=== PATIENT | male | born 1965 | race Caucasian/White ===

== ENCOUNTER → 2017-12-19 16:18 | Outpatient (CLI) | payer OTHER, SELFPAY ==
[2017-12-19 16:58] LABS: Hematocrit 46.4 % (40-54); Hemoglobin 15.7 g/dl (13.0-16.5); Mean Corp Hgb Conc 33.8 g/gl (32-36); Mean Corpuscular Hgb 30.5 pg (27.0-32.0); Mean Corpuscular Volume 90.1 fL (80-94); Mean Platelet Vol. 10.4 fl (6.2-12.0); Platelet Count 173 K/mm3 (150-450); RBC Distribution Width CV 13.7 % (11.6-14.6); Red Blood Count 5.15 M/mm3 (4.6-6.2); White Blood Count 5.9 K/mm3 (4.4-11.0)
[2017-12-19 17:05] LABS: Scan Indicated on CBC? Y/N NO
[2017-12-19 17:20] LABS: Anion Gap 6 (5-15); BUN 10 mg/dL (7-18); BUN/Creat Ratio 10.4 RATIO (10-20); Calcium,Total 8.4 mg/dL (8.5-10.1); Chloride 105 mmol/L (98-107); Creatinine, Serum 0.96 mg/dL (0.70-1.30); EST Glomerular Filtration Rate 87 mL/min (>60); Est Glom Filt Rate - Afr Amer 105 mL/min (>60); Glucose 78 mg/dL (74-106); Potassium 3.9 mmol/L (3.5-5.1); Sodium Level 138 mmol/L (136-145)
== END ==
LOC: LAB 16:20
PROVIDERS: Family Provider Family Medicine; PCP Family Medicine; Referring Provider Surgery; Visit Provider Surgery
DX: Z01.818 Encounter for other preprocedural examination (principal)
CPT/HCPCS: 36415; 80048; 85027

== ENCOUNTER → 2017-12-27 17:20 | Outpatient (CLI) | payer OTHER, SELFPAY ==
--- NOTE | 2017-12-27 17:24 | CT_ITS ---
STUDY: CTA OF THE ABDOMINAL AORTA AND BILATERAL LOWER EXTREMITIES REASON FOR EXAM: Male, 52 years old. History of abdominal aortic aneurysm. RADIATION DOSAGE (If Supplied By Facility): CTDIvol = ( 14.16 ) mGy, DLP = ( 1857.71 ) mGycm TECHNIQUE: Axial CT angiography multi-detector data acquisition was obtained from the lower thoracic aorta to the level of the feet following intravenous administration of 100 ml of Isovue 370 contrast. Axial images and MIP images were reconstructed from the axial data set. Post-processing of the angiographic images was performed, with multiplanar reformation and 3D reconstruction. # of Images: 1106 Individualized dose optimization techniques were used for this CT. TECHNICAL QUALITY: Good COMPARISON: None. Descriptors of Narrowing: None (0%) Mild (< 50%) Moderate (50-70%) Severe (70-90%) Subtotal/Total Occlusion (90-100%) Non-Evaluable (technically non-diagnostic FINDINGS: Abdominal aorta: There is an infrarenal abdominal aortic aneurysm measuring about 4.9 cm in AP diameter, 4.9 cm in transverse diameter and extends for a length of approximately 7.8 cm ending at the level of the bifurcation. There are peripheral clots and calcifications. The opacified lumen measures about 2.5 cm in diameter. Celiac and superior mesenteric arteries: No demonstrated narrowing. Inferior mesenteric artery: Not visualized. Right renal artery(arteries): No demonstrated narrowing. Left renal artery(arteries): No demonstrated narrowing. Right common iliac artery: Ectatic without significant stenosis. Right external iliac artery: No demonstrated narrowing. Right internal iliac artery: No demonstrated narrowing. Left common iliac artery: Ectatic without significant stenosis. Left external iliac artery: No demonstrated narrowing. Left internal iliac artery: No demonstrated narrowing. RIGHT LOWER EXTREMITY Right common femoral artery: No demonstrated narrowing. Right profundus femoris: No demonstrated narrowing. Right superficial femoral: No demonstrated narrowing. Right popliteal artery: No demonstrated narrowing. Right tibioperoneal trunk: No demonstrated narrowing. Right anterior tibial artery: No demonstrated narrowing. Right posterior tibial artery: No demonstrated narrowing. Right peroneal artery: No demonstrated narrowing. LEFT LOWER EXTREMITY Left common femoral artery: No demonstrated narrowing. Left profundus femoris: No demonstrated narrowing. Left superficial femoral: No demonstrated narrowing. Left popliteal artery: No demonstrated narrowing. Left tibioperoneal trunk: No demonstrated narrowing. Left anterior tibial artery: No demonstrated narrowing. Left posterior tibial artery: No demonstrated narrowing. Left peroneal artery: No demonstrated narrowing. There is no demonstrated acute intra-abdominal process. There is a small umbilical hernia containing fat. CT/CTA Abd w/Runoff W/WO Contrast IMPRESSION: 1. Infrarenal abdominal aortic aneurysm as described above extending to the level of the bifurcation with peripheral clots and calcifications. 2. Ectatic common iliac arteries bilaterally. 3. Otherwise no significant stenosis is seen in both lower extremities. 4. The inferior mesenteric artery is not visualized. Electronically Signed: Silviano Velez MD at 1:53 EDT Tel , Service support ,
== END ==
PROVIDERS: Family Provider Family Medicine; PCP Family Medicine; Referring Provider Surgery; Visit Provider Surgery
DX: I71.4 Abdominal aortic aneurysm, without rupture (principal)
CPT/HCPCS: 75635; Q9967

== ENCOUNTER → 2017-12-29 11:42 | Outpatient (CLI) | payer OTHER, SELFPAY ==
--- NOTE | 2017-12-29 11:43 | CDU_ITS ---
Reason For Study: Bruit Rt. Velocities/BP Lt. Velocities/BP Prox CCA 103.0/22.9 cm/sec. Prox CCA 100.0/30.5 cm/sec. Mid CCA 90.9/22.3 cm/sec. Mid CCA 95.0/29.9 cm/sec. Dist CCA 87.4/24.6 cm/sec. Dist CCA 89.7/29.3 cm/sec. Prox ICA 69.2/25.2 cm/sec. Prox ICA 60.4/23.5 cm/sec. Mid ICA 65.7/29.3 cm/sec. Mid ICA 63.4/30.4 cm/sec. Dist ICA 53.6/25.3 cm/sec. Dist ICA 58.2/23.1 cm/sec. Rt. ICA/CCA = .76. Lt. ICA/CCA = .67. Prox ECA 91.5/24.0 cm/sec. Prox ECA 82.1/27.6 cm/sec. Rt. Vert. 43.4/17.0 cm/sec. Lt. Vert. 48.8/21.5 cm/sec. Right Extracranial There is intimal thickening but no significant atherosclerotic plaque noted in the right common carotid artery. There is intimal thickening but no significant atherosclerotic plaque noted in the right internal carotid artery. There is no significant atherosclerotic plaque noted in the right external carotid artery. Antegrade flow is noted in the right vertebral artery. Left Extracranial There is intimal thickening but no significant atherosclerotic plaque noted in the left common carotid artery. There is intimal thickening but no significant atherosclerotic plaque noted in the left internal carotid artery. There is no significant atherosclerotic plaque noted in the left external carotid artery. Antegrade flow is noted in the left vertebral artery. Procedure Carotid Duplex [id number]. Exam performed in department. Interpretation Summary No hemodynamically significant plague or stenosis bilateral extracranial internal carotids with <50% stenosis bilaterally. Normal flow bilateral external carotids Patent and antegrade vertebrals bilaterally Ordering Physician: Ernst Hampton Referring Physician: Ernst Hampton Performed By: Homa Louis RVT
--- NOTE | 2017-12-29 16:15 | STRESSREP ---
Stress Test Report Date: 12/29/2017 Procedure: Exercise tolerance test Indications: Preoperative cardiovascular evaluation Consent: Per the patient Procedure: The patient exercised on a Conor protocol for 9 minutes completing Stage III achieving a peak heart rate of 150 bpm (89 % predicted maximal heart rate) with a peak blood pressure 142/72 mmHg and a peak MET capacity of approximately 10 MET's. The baseline ECG demonstrated normal sinus rhythm; poor R wave progression. The peak exercise ECG demonstrated somatic/motion artifact with no obvious ECG changes. There was a rare PVC during exercise. The functional capacity was considered good. The patient had no complaint of chest discomfort during exercise or recovery. The examination was discontinued secondary to dyspnea. Impression: 1. Technically adequate (percent predicted maximal heart rate greater than 85%) exercise tolerance test 2. Peak exercise ECG with somatic/motion artifact with no obvious ECG changes 3. There was a rare PVC during exercise This note was generated with Photowaysation software. It may contain incorrect words, spelling, and punctuation that were not noted in checking the note before signing.
== END ==
LOC: CVS 11:42
PROVIDERS: Family Provider Family Medicine; PCP Family Medicine; Referring Provider Surgery; Visit Provider Surgery
DX: Z01.818 Encounter for other preprocedural examination (principal); F17.200 Nicotine dependence, unspecified, uncomplicated; R09.89 Other specified symptoms and signs involving the circulatory and respiratory systems; I71.4 Abdominal aortic aneurysm, without rupture
CPT/HCPCS: 93017; 93880

== ENCOUNTER 2018-01-16 05:01 | Inpatient (IN) | payer OTHER, SELFPAY ==
[2018-01-10 15:25] VITALS: BP 127/77; PULSE 79; RESP 16; TEMP 36.4; O2SAT 97; BMI 29.4
--- NOTE | 2018-01-10 15:31 | SDCEKG_ITS ---
Test Reason : Blood Pressure : / mmHG Vent. Rate : 075 BPM Atrial Rate : 075 BPM P-R Int : 164 ms QRS Dur : 078 ms QT Int : 380 ms P-R-T Axes : 014 070 040 degrees QTc Int : 424 ms Normal sinus rhythm Normal ECG Confirmed by MIKAELA TOMLIN, SAMUEL ([id number]), commissioning editor FILIPE NGO ([id number]) on 01/15/2018 3:51:43 PM Referred By: Ernst Hampton Confirmed By:SAMUEL AL MD
--- NOTE | 2018-01-10 16:28 | RAD_ITS ---
STUDY: X-RAY CHEST REASON FOR EXAM: Male, 52 years old. Acute chest pain TECHNIQUE: PA and lateral views of the chest. COMPARISON: None. FINDINGS: The lungs are clear and expanded. There is no demonstrated pleural abnormality. Normal size heart. Normal mediastinum and jia. Normal visualized pulmonary arteries. Normal visualized aortic arch and descending thoracic aorta. Normal visualized thoracic spine. Normal visualized ribs, clavicles, and shoulders. There is no demonstrated abnormality of the visualized soft tissue structures of the upper abdomen. RAD/Chest PA and Lateral IMPRESSION: Normal x-ray examination of the chest. Electronically Signed: Live Lynch MD at 19:48 EDT , Service support ,
[2018-01-10 16:35] LABS: Magnesium 2.1 mg/dL (1.6-2.6)
[2018-01-10 16:44] LABS: Albumin, Serum 3.9 g/dL (3.2-5.0); Phosphorus 3.4 mg/dL (2.5-4.9)
[2018-01-16] VITALS (38 sets, daily range): BP systolic 104–152; BP diastolic 56–85; PULSE 53–95; RESP 13–21; TEMP 36.2–37.8; O2SAT 96–100; BMI 29.2
[2018-01-16] MEDS: Lactated Ringers 1,000 ML 100 ML IV (06:01)
--- NOTE | 2018-01-16 06:43 | PCM.OPRPT ---
Problem List (1) Abdominal aortic aneurysm (AAA) 3.0 cm to 5.5 cm in diameter in male Status: Acute Report of Operation Date of Procedure: 01/16/18 Pre-Operative Diagnosis: Infrarenal abdominal aortic aneurysm Post-Operative Diagnosis: Same Surgery/Procedure Performed:: Left radial arterial line placement. Infrarenal abdominal aortic aneurysm stent graft repair with [place] excluder main body 31 x 14.5 x 13 and ipsilateral extension 16 x 10 and contralateral extension 20 x 12. Main body reference number [id number]. Serial #[id number]. Extension on the left reference number [id number]. Serial #[id number]. Extension on the right reference number [id number]. Serial #[id number] Description of Surgical Findings:: Timeout and informed consent was obtained. At the bedside Anup test was performed. This demonstrated adequate ulnar flow. The left wrist was gently extended. Was prepped with Betadine. I used 1% lidocaine as a local anesthetic. A total of 1 cc was used. Local was instilled. I initially tried a 20-gauge aero kit Angiocath. Although I got access I could not get Seldinger wire advancement. After a couple more attempts I was able to get a 20-gauge Angiocath with good advancement. It was secured skin with interrupted 3-0 silk and OpSite dressing. It was connected to pressure tubing with good waveform obtained. The hand was viable no apparent complication and he tolerated it well. The patient was subsequently taken to the special procedure lab for definitive operative repair of his aortic aneurysm. Timeout and informed consent was repeated. The patient was taken to the special procedures lab. Was placed on the table. Ancef 2 g are given intravenously preoperatively. The abdomen groins were sterilely prepped and draped. Ioban draping was used as well. Ultrasound was used to identify the common femoral arteries bilaterally. 1% lidocaine mixed 50-50 with 0.5% Marcaine was used as local anesthetic. Throughout the procedure 20 cc was used. Under ultrasound guidance local was instilled. Then a singlewall needle was inserted under ultrasound guidance. Seldinger wire advancement. 8 Barb[place] sheath dilator was inserted. This was performed and bilaterally. Subsequently the pre-close device was utilized bilaterally. 2 separate preclosed devices were pre-deployed at the 2 to 8 o'clock position and the 10 to 4 o'clock position. Subsequently 8 Barb[place] sheaths were reinserted. A 4 [place] angled glide cath with an angled Glidewire was used to gain access proximal to the aneurysm. Exchanged out for an 035 Amplatz wire. A 18 Barbadian sheath was placed on the left. A 12 [place] sheath was placed on the right. The patient received 11,000 units of heparin prior to those sheath placements. And during the procedure based upon ACT he received another 1000 units. The 31 mm main body device was placed from the left. A pigtail catheter was placed from the right. Hand-injection was performed to identify the orifice of the renal arteries the top portion of the graft was positioned. Hand-injection view demonstrated good positioning. The device was deployed down to the contralateral gate. Using an angled Glidewire and the pigtail catheter I was able to gain access to that limb. The pigtail catheter return nicely within the device. I then exchanged out for an 035 Amplatz wire. I placed the 12 Barb[place] sheath dilator within the graft. A valve on extension on the right with a distal diameter of 20 mm x 12 mm length was selected. It was positioned and retrograde imaging had been performed to assure correct length. The device was deployed. Subsequently the main body device was completely deployed on the left. Sheath were withdrawn where needed. Subsequently the extension was placed on the left again I advanced the left sheath up into the graft then placed a 16 mm diameter by 10 cm long device on the left. Retrograde injection was used to identify the orifice of the hypogastric as had been done on the right. The device was deployed. Subsequently a 27 mm equalizer balloon was utilized to secure an iron out the graft at all locations. A pigtail catheter was reinserted from the right and using 15 cc a second of Isovue for 25 cc an AP aortogram was obtained. This demonstrated very nice positioning of the top of the graft right at the orifice of the right renal artery coming straight across. There was good positioning distally with patent hypogastric bilaterally. There was some evidence of some lumbar fill but there was no type I endoleak. The sheaths were subsequently removed. The Perclose devices were secured. I did have to place an additional third Perclose device over the Amplatz wire in each groin to achieve a hemostasis. Hemostasis was achieved. Feet were viable with palpable pulses. There were no apparent complications he tolerated the procedure well was taken back to the intensive care unit service in satisfactory condition. Total contrast used 70 cc. Total blood loss proximately 250 cc. Images demonstrate now successfully placed [place], Excluder aortic stent graft with nice positioning proximally and distally with no evidence of type I endoleak Ernst Hampton M.D., F.A.C.S. Type of Anesthesia:: Local MAC Anesthesiologist: Reynaldo Cutler
--- NOTE | 2018-01-16 06:44 | DCINST_ITS ---
Discharge Diet: Light diet - advance as tolerated Discharge Activity: May Not Drive, May Shower Lifting Restrictions: 10 pounds Call your doctor if your incision/area has: Continuous Slow Oozing, Sudden Increased Bleeding, Increased Pain/ Swelling, Increased Redness, Foul Smelling Discharge Call your doctor if you observe: Fever of 101 or Higher Suture Line Care: Avoid Pulling/Pushing, Avoid Pinching/Bending Additional Dressing/Incision Instructions:: Change or remove dressing in 3 days. Leave steri-strips in place for 1 week. Allergies/Adverse Reactions: Allergies sulfamethoxazole [From Bactrim] Allergy (Intermediate, Verified 01/16/18 05:26) weakness/hives/cold sweats trimethoprim [From Bactrim] Allergy (Intermediate, Verified 01/16/18 05:26) weakness/hives/cold sweats Medications to take at Discharge Aspirin E.C. [Ecotrin] 81 mg PO DAILY@0800 01/10/18 Docusate Sodium [Stool Softener] 100 mg PO DAILY PRN PRN 01/10/18 Pseudoephedrine HCl [Sudafed 24-Hour] 240 mg PO DAILY 01/10/18 Triamcinolone Acetonide [Nasal Allergy] 16.9 ml NS PRN PRN 01/10/18 Primary Care Physician: Duke Barrientos [Primary Care Provider] - Test Results: Test results from this visit will be discussed in further detail at your follow- up appointment, if applicable. Please Follow Up With: Ernst Hampton MD - [phone] When: Call to make an appointment to be seen in about 10 days.
--- NOTE | 2018-01-16 06:46 | OP.PCM_ITS ---
Problem List (1) Abdominal aortic aneurysm (AAA) 3.0 cm to 5.5 cm in diameter in male Status: Acute Report of Operation Date of Procedure: 01/16/18 Pre-Operative Diagnosis: Infrarenal abdominal aortic aneurysm Post-Operative Diagnosis: Same Surgery/Procedure Performed:: Left radial arterial line placement. Infrarenal abdominal aortic aneurysm stent graft repair with [place] excluder main body 31 x 14.5 x 13 and ipsilateral extension 16 x 10 and contralateral extension 20 x 12. Main body reference number [id number]. Serial #[id number]. Extension on the left reference number [id number]. Serial #[id number]. Extension on the right reference number [id number]. Serial #[id number] Description of Surgical Findings:: Timeout and informed consent was obtained. At the bedside Anup test was p erformed. This demonstrated adequate ulnar flow. The left wrist was gently extended. Was prepped with Betadine. I used 1% lidocaine as a local anesthetic. A total of 1 cc was used. Local was instilled. I initially tried a 20-gauge aero kit Angiocath. Although I got access I could not get Seldinger wire advancement. After a couple more attempts I was able to get a 20-gauge Angiocath with good advancement. It was secured skin with interrupted 3-0 silk and OpSite dressing. It was connected to pressure tubing with good waveform obtained. The hand was viable no apparent complication and he tolerated it well. The patient was subsequently taken to the special procedure lab for definitive operative repair of his aortic aneurysm. Timeout and informed consent was repeated. The patient was taken to the special procedures lab. Was placed on the table. Ancef 2 g are given intravenously preoperatively. The abdomen groins were sterilely prepped and draped. Ioban draping was used as well. Ultrasound was used to identify the common femoral arteries bilaterally. 1% lidocaine mixed 50-50 with 0.5% Marcaine was used as local anesthetic. Throughout the procedure 20 cc was used. Under ultrasound guidance local was instilled. Then a singlewall needle was inserted under ultrasound guidance. Seldinger wire advancement. 8 [place] sheath dilator was inserted. This was performed and bilaterally. Subsequently the pre-close device was utilized bilaterally. 2 separate preclosed devices were pre-deployed at the 2 to 8 o'clock position and the 10 to 4 o'clock position. Subsequently 8 [place]ian sheaths were reinserted. A 4 [place]ian angled glide cath with an angled Glidewire was used to gain access proximal to the aneurysm. Exchanged out for an 035 Amplatz wire. A 18 Lithuanian sheath was placed on the left. A 12 Lithuanian sheath was placed on the right. The patient received 11,000 units of heparin prior to those sheath placements. And during the procedure based upon ACT he re ceived another 1000 units. The 31 mm main body device was placed from the left. A pigtail catheter was placed from the right. Hand-injection was performed to identify the orifice of the renal arteries the top portion of the graft was positioned. Hand-injection view demonstrated good positioning. The device was deployed down to the contralateral gate. Using an angled Glidewire and the pigtail catheter I was able to gain access to that limb. The pigtail catheter return nicely within the device. I then exchanged out for an 035 Amplatz wire. I placed the 12 [place]ian sheath dilator within the graft. A valve on extension on the right with a distal diameter of 20 mm x 12 mm length was selected. It was positioned and retrograde imaging had been performed to assure correct length. The device was deployed. Subsequently the main body device was completely deployed on the left. Sheath were withdrawn where needed. Subsequently the extension was placed on the left again I advanced the left sheath up into the graft then placed a 16 mm diameter by 10 cm long device on the left. Retrograde injection was used to identify the orifice of the hypogastric as had been done on the right. The device was deployed. Subsequently a 27 mm equalizer balloon was utilized to secure an iron out the graft at all locations. A pigtail catheter was reinserted from the right and using 15 cc a second of Isovue for 25 cc an AP aortogram was obtained. This demonstrated very nice positioning of the top of the graft right at the orifice of the right renal artery coming straight across. There was good positioning distally with patent hypogastric bilaterally. There was some evidence of some lumbar fill but there was no type I endoleak. The sheaths were subsequently removed. The Perclose devices were secured. I did have to place an additional third Perclose device over the Amplatz wire in each groin to achieve a hemostasis. Hemostasis was achieved. Feet were viable with palpable pulses. There were no apparent complications he tolerated the procedure well was taken back to the intensive care unit service in satisfactory condition. Total contrast used 70 cc. Total blood loss proximately 250 cc. Images demonstrate now successfully placed [place], Excluder aortic stent graft with nice positioning proximally and distally with no evidence of type I endoleak Ernst Hampton M.D., F.A.C.S. Type of Anesthesia:: Local MAC Anesthesiologist: Reynaldo Cutler
--- NOTE | 2018-01-16 06:49 | NURSING ---
supervisor laboratory animal facility staff took patient down to laborer ammunition assembly at this time.
[2018-01-16] MEDS: Cefazolin 2 GM in 0.9% Normal Saline 100 ML IV (07:18)
[2018-01-16] MEDS: Bupivacaine Mpf 0.5% 30 ML VIAL (08:00)
[2018-01-16 09:51] LABS: ACT Activated Clotting Time 114 sec (74-137)
[2018-01-16 09:51] LABS: ACT Activated Clotting Time 235 sec (74-137)
[2018-01-16 09:51] LABS: ACT Activated Clotting Time 340 sec (74-137)
[2018-01-16] MEDS: Lactated Ringers 1,000 ML 40 ML IV (10:28)
[2018-01-16] MEDS: 0.9% NaCl Peripheral Flush Adult/Peds IV (10:31)
--- NOTE | 2018-01-16 12:45 | CASEMGMT ---
SHANDA DOLAN INITIAL ASSESSMENT D/C PLAN: Home Face to Face with patient for initial transition planning/care coordination assessment. Pt resting quietly in bed. Daughter and fiance @ bedside. RN MAGDALENO introduced self and role at [facility]. Care providers, pharmacy, and demographics verified. PCP: Duke Barrientos Pharmacy: [facility] Insurance: [employer] [facility] Prescription Benefit: Yes--[employer] [facility] Living Will/HPOA: Does not have either. Daughter states is interested in more information and filling paperwork out and pt agreeable. Given Adv Directive information booklet and JanetVISHAL correa notified. LNOK: Daughter Living Arrangements: Lives with his fiance and grandson. Approx 12 steps to enter home. Denies difficulties. Transportation: Pt drives. Has transportation on discharge. DME: Denies using any DME and denies needs. Is independent with ambulation and all ADL's. HHC/SNF: No history of either. No needs identified. Pt wishes to return home on discharge. CM to follow for any further discharge planning needs that may arise. Doyle SCHMID RN, CM
--- NOTE | 2018-01-16 14:04 | CASEMGMT ---
Social work: Huseyin RN CM, patient is interested in completing advanced directive forms. Met with patient, daughter, and patient's girlfriend. Discussed advance directive forms and patient verbalizes understanding. Assisted patient in completing documents. Completed and signed documents placed on chart and original given to patient. ASHLEY Langley
--- NOTE | 2018-01-16 18:08 | PCM.PN.BLA ---
Progress Note Pt has been OOB for 3 hours Voiding spontaneously Some flatus Tolerating clears Bilateral groins are supple 3+ bilateral popliteals Will DC shraddha Very stable. Plan home tomorrow
--- NOTE | 2018-01-16 21:15 | NURSING ---
Pt's daughter asleep in recliner in room. Educated pt and family member on visitation hours 9a-9p and offered daughter the option to sleep in waiting room. Pt and family member became mildly agitated, but complied with the department rules for visitation and left the unit. Nurse apologized to family member and pt, and explained the rationale behind the department protocol. Neither pt nor family member acknowledged understanding or verbalized acceptance.
[2018-01-17] VITALS (12 sets, daily range): BP systolic 110–138; BP diastolic 57–78; PULSE 71–90; RESP 13–22; TEMP 36.7–37.7; O2SAT 94–99
[2018-01-17 04:27] LABS: Absolute Lymphocyte Count 1.39 X10^3/ul (0.83-4.51); Absolute Neutrophil Count 6.4 X10^3/uL (2.0-7.7); Basophil# 0.02 X10^3/uL; Basophil% 0.2 % (0-1); Eosinophil# 0.15 X10^3/uL; Eosinophils% 1.6 % (0-5); Hematocrit 43.5 % (40-54); Hemoglobin 14.6 g/dl (13.0-16.5); Lymphocyte # 1.39 X10^3/ul (4.0); Lymphocyte % 15.3 % (19-41); Mean Corp Hgb Conc 33.6 g/gl (32-36); Mean Corpuscular Hgb 30.1 pg (27.0-32.0); Mean Corpuscular Volume 89.7 fL (80-94); Mean Platelet Vol. 10.1 fl (6.2-12.0); Monocyte# 1.09 X10^3/uL; Neutrophil # 6.42 X10^3/uL (2.7-7.7); Neutrophil % 70.6 % (47-70); Platelet Count 155 K/mm3 (150-450); RBC Distribution Width CV 13.6 % (11.6-14.6); RBC Distribution Width SD 44.7 fl (35.1-43.9); Red Blood Count 4.85 M/mm3 (4.6-6.2); White Blood Count 9.1 K/mm3 (4.4-11.0)
[2018-01-17 04:29] LABS: POSITIVE COUNT NO; POSITIVE DIFFERENTIAL NO; POSITIVE MORPHOLOGY NO
[2018-01-17 04:33] LABS: Anion Gap 7 (5-15); BUN 10 mg/dL (7-18); Calcium,Total 7.9 mg/dL (8.5-10.1); Chloride 107 mmol/L (98-107); Creatinine, Serum 0.83 mg/dL (0.70-1.30); EST Glomerular Filtration Rate 102 mL/min (>60); Est Glom Filt Rate - Afr Amer 124 mL/min (>60); Estimated Creatinine Clearance 102.93 ml/min; Glucose 89 mg/dL (74-106); Potassium 3.8 mmol/L (3.5-5.1); Sodium Level 142 mmol/L (136-145)
--- NOTE | 2018-01-17 05:17 | PCM.GEN.VAS ---
General Vascular Note - Subjective Pt without complaint No nausea, some flatus, discomfort tolerable a-line left in overnight. Removed this a.m. with resolving left forearm pressure Abd: soft, NT, pos BS - Objective Vital Signs Temp Pulse Resp BP Pulse Ox 99.5 F H 73 13 115/77 98 01/17/18 04:00 01/17/18 05:00 01/17/18 05:00 01/17/18 05:00 01/17/18 05:00 Oxygen Delivery Method Room Air Weight: 197 lb 12.074 oz Body Mass Index (BMI) 29.2 Intake and Output for Last 24 Hours 01/15/18 01/16/18 01/17/18 23:59 23:59 23:59 Intake Total 912 / 912 280 / 280 Output Total 1740 / 1740 750 / 750 Balance -828 / -828 -470 / -470 Laboratory Tests Past 24 Hrs 01/16/18 01/16/18 01/16/18 07:38 09:36 09:59 WBC RBC Hgb Hct MCV MCH MCHC RDW RDW Differential Plt Count MPV Immature Gran % (Auto) Neut % (Auto) Lymph % (Auto) Izard % (Auto) Eos % (Auto) Baso % (Auto) Absolute Neuts (auto) Absolute Lymphs (auto) Total Counted Activated Clotting Time 114 235 H 340 H Sodium Potassium Chloride Carbon Dioxide Anion Gap BUN Creatinine Estim Creat Clear Calc Est GFR (MDRD) Af Amer Est GFR (MDRD) Non-Af BUN/Creatinine Ratio Glucose Calcium 01/17/18 01/17/18 04:00 04:00 WBC 9.1 RBC 4.85 Hgb 14.6 Hct 43.5 MCV 89.7 MCH 30.1 MCHC 33.6 RDW 13.6 RDW Differential 44.7 H Plt Count 155 MPV 10.1 Immature Gran % (Auto) 0.300 Neut % (Auto) 70.6 H Lymph % (Auto) 15.3 L Izard % (Auto) 12.0 H Eos % (Auto) 1.6 Baso % (Auto) 0.2 Absolute Neuts (auto) 6.4 Absolute Lymphs (auto) 1.39 Total Counted Not Reportable Activated Clotting Time Sodium 142 Potassium 3.8 Chloride 107 Carbon Dioxide 28.0 Anion Gap 7 BUN 10 Creatinine 0.83 Estim Creat Clear Calc 102.93 Est GFR (MDRD) Af Amer 124 Est GFR (MDRD) Non-Af 102 BUN/Creatinine Ratio 12.0 Glucose 89 Calcium 7.9 L Vascular Exam: L Radial: 3+, L Femoral: 3+, L Popliteal: 3+, R Femoral: 3+, R Popliteal: 3+ - Assessment/Plan Excellent progress Labs very stable. Good renal fxn Pt ready for discharge
--- NOTE | 2018-01-17 05:18 | NURSING ---
A-Line to L radial removed, intact. Even pressure held for 10 minutes. Hemostasis within expected time frame. DSD applied. Pt tolerated well.
[2018-01-17] MEDS: Aspirin E.C. 81 MG Tablet PO (08:56)
[2018-01-17] MEDS: Docusate Sodium 100 MG Capsule PO (09:41)
== END 2018-01-17 10:00 | disposition home or self-care (01) | DRG 269 ==
PROVIDERS: Anesthesiology; Admitting Provider Surgery; Family Provider Family Medicine; PCP Family Medicine; Referring Provider Surgery; Visit Provider Surgery
PROC: 04V03D6 (ICD-10-PCS; principal; 2018-01-16 07:00)
DX: I71.4 Abdominal aortic aneurysm, without rupture (principal)
CPT/HCPCS: 34701; 34709; 34713; 36200; 71046; 75625; 80048; 82040; 83735; 84100; 85025; 85347; 86850; 86900; 93005; 99406; J7120; Q9967; A4216; C1725; C1760; C1769; C1894

== ENCOUNTER → 2021-09-07 | Outpatient (CLI) | payer MEDICAID, SELFPAY ==
--- NOTE | 2021-09-07 16:25 | CT_ITS ---
EXAM: CT ANGIOGRAPHY ABDOMEN WITHOUT AND WITH INTRAVENOUS CONTRAST CLINICAL INDICATION: aaa TECHNIQUE: Helically acquired angiography images of the abdomen without and with intravenous contrast. This CT exam was performed using one or more of the following dose reduction techniques: automated exposure control, adjustment of the mA and/or kV according to patient size, and/or use of iterative reconstruction technique. This report was created using [employer] report generation technology. MIP reconstructed images were created and reviewed. CONTRAST: IV 100mL Isovue-370 COMPARISON: 12/27/2017 FINDINGS: AORTA: See below. CELIAC TRUNK AND MESENTERIC ARTERIES: No acute findings. No occlusion or significant stenosis. No dissection. RENAL ARTERIES: No acute findings. No occlusion or significant stenosis. No dissection. LOWER THORAX: Unremarkable. Lung bases are clear. No cardiomegaly. No significant pericardial effusion. LIVER: Unremarkable. Homogeneous. No focal mass. GALLBLADDER AND BILE DUCTS: Unremarkable. No calcified gallstones. No gallbladder distention or wall edema. No intra- or extrahepatic biliary ductal dilation. PANCREAS: Unremarkable. No focal cystic or solid mass. SPLEEN: Unremarkable. Normal size without focal cystic or solid mass. ADRENALS: Unremarkable. No nodules. KIDNEYS AND URETERS: Since reference examination an aortobiiliac endograft has been placed in good position. Renal aorta present on measures 3.9 cm on today''s exam compared to 4.8 cm the previous examination. There is no evidence of obstruction or leakage. Normal renal size and position. STOMACH AND BOWEL: Unremarkable. No stomach or bowel distention. No focal inflammatory change. INTRAPERITONEAL SPACE: Unremarkable. No ascites or other fluid collection. No free air. BONES/JOINTS: Unremarkable. No suspicious lytic or blastic abnormality. SOFT TISSUES: Unremarkable. No discrete abdominal or pelvic wall hernia. LYMPH NODES: No enlarged lymph nodes. OTHER FINDINGS: All branches are patent. CT/CTA Abdomen W/WO Contrast IMPRESSION: Interval placement of an aortobiiliac endograft in good position. There has been interval decrease in size of the thrombosed infrarenal abdominal aortic aneurysm. There is no rupture or leakage. Electronically Signed: Bennett Crawford MD at 2:57 EDT ,
== END | disposition home or self-care (01) ==
PROVIDERS: PCP Family Medicine; Referring Provider Surgery; Visit Provider Surgery
DX: I71.4 Abdominal aortic aneurysm, without rupture (principal)
CPT/HCPCS: 74175; Q9967

== ENCOUNTER 2021-09-21 05:52 | Day surgery (SDC) | payer MEDICAID, SELFPAY ==
--- NOTE | 2021-09-21 06:03 | HP.PCM_ITS ---
History and Physical Date of Admission: 09/21/21 Chief Complaint: right mid abd pain Web Applications Developer Required: No Is patient in pain?: Yes Allergies sulfamethoxazole [From Bactrim] Allergy (Intermediate, Verified 09/09/21 09:39) weakness/hives/cold sweatstrimethoprim [From Bactrim] Allergy (Intermediate, Verified 09/09/21 09:39) weakness/hives/cold sweats Medications aspirin 81 mg tablet,delayed release 81 mg PO DAILY@0800 [facility] 01/10/18 [History Confirmed 09/09/21] docusate sodium 100 mg capsule (Stool Softener) 100 mg PO DAILY PRN PRN stool softener 01/10/18 [History Confirmed 09/09/21] PFSH Medical History?(Updated 09/09/21 @ 09:[address] Ernst Hampton MD) Abdominal aortic aneurysm (AAA) 3.0 cm to 5.5 cm in diameter in male Tobacco dependence Surgical History?(Updated 09/09/21 @ 09:[address] Ernst Hampton MD) History of elbow surgery History of right inguinal hernia repair S/P AAA (abdominal aortic aneurysm) repair (~2018) Family History? Brother Arthritis Kidney diseaseFather Cancer ?? ? lung cancer CVA (cerebral vascular accident) High cholesterolMother Diabetes Heart disease Hypertension High cholesterolSister Thyroid disorder Social History? Smoking Status:? Current every day smoker alcohol intake:? never substance use type:? does not use HPI HPI HPI: KAY TRAMMELL, is a 56 M who presents to the office today for EVAR follow-up.? There are notes that are provided by Dr. Dl Enciso with a aortic duplex exam performed August 11, 2021 at [facility].? Right FABIO 1.19 left FABIO 1.24.? 4.4 cm infrarenal abdominal aortic aneurysm endograft noted no evidence of endoleak.? The patient referral however suggest possible new aneurysm.? It is of particular note that the patient failed to return for his scheduled follow-up appointments and follow-up EVAR testing..? As noted below on September 07, 2021 we are able to get a CTA angiogram of the abdominal aorta and this demonstrates an intact aortic stent graft repair with a decrease in preoperative size of his aortic aneurysm from 4.8 cm to his current 3.9 cm.? There is additional notation suggesting no endoleak identified. She has 2 additional concerns.? 1 is a right chronic right groin pain.? He has a nerve tingling and burning sensation in the right medial thigh.? He had a remote right inguinal hernia repair.? He states that that repair was done for the pain but the pain never got better in fact likely got worse.? This was antecedent to his aortic stent graft repair 2018.? Its been an ongoing chronic issue.? He cannot detect any mass or bulge in that right groin. Finally his previous colonoscopy was over 10 years ago.? He is in need of screening.? He notes some concerns about progressive constipation. Date of Procedure: 01/16/18 Pre-Operative Diagnosis: Infrarenal abdominal aortic aneurysm Post-Operative Diagnosis: Same Surgery/Procedure Performed:: Left radial arterial line placement.? Infrarenal abdominal aortic aneurysm stent graft repair with [place] excluder main body 31 x 14.5 x 13 and ipsilateral extension 16 x 10 and contralateral extension 20 x 12.? Main body reference number [id number].? Serial #[id number].? Extension on the left reference number PLC [id number].? Serial #[id number].? Extension on the right reference number PLC [id number].? Serial #[id number] September 07, 2021 EXAM:? CT ANGIOGRAPHY ABDOMEN WITHOUT AND WITH INTRAVENOUS CONTRAST CLINICAL INDICATION:? aaa TECHNIQUE:? Helically acquired angiography images of the abdomen without and with intravenous contrast.? This CT exam was performed using one or more of the following dose reduction techniques:? automated exposure control, adjustment of the mA and/or kV according to patient size, and/or use of iterative reconstruction technique.? This report was created using [employer] report generation technology.? MIP reconstructed images were created and reviewed. CONTRAST:? IV 100mL Isovue-370 COMPARISON:? 12/27/2017 FINDINGS: AORTA:? See below. CELIAC TRUNK AND MESENTERIC ARTERIES:? No acute findings.? No occlusion or significant stenosis.? No dissection. RENAL ARTERIES:? No acute findings.? No occlusion or significant stenosis. No dissection. LOWER THORAX:? Unremarkable.? Lung bases are clear.? No cardiomegaly.? No significant pericardial effusion. LIVER:? Unremarkable.? Homogeneous.? No focal mass. GALLBLADDER AND BILE DUCTS:? Unremarkable.? No calcified gallstones.? No gallbladder distention or wall edema.? No intra- or extrahepatic biliary ductal dilation. PANCREAS:? Unremarkable.? No focal cystic or solid mass. SPLEEN:? Unremarkable.? Normal size without focal cystic or solid mass. ADRENALS:? Unremarkable.? No nodules. KIDNEYS AND URETERS:? Since reference examination an aortobiiliac endograft has been placed in good position.? Renal aorta present on measures 3.9 cm on today''s exam compared to 4.8 cm the previous examination.? There is no evidence of obstruction or leakage.? Normal renal size and position. STOMACH AND BOWEL:? Unremarkable.? No stomach or bowel distention.? No focal inflammatory change. INTRAPERITONEAL SPACE:? Unremarkable.? No ascites or other fluid collection.? No free air. BONES/JOINTS:? Unremarkable.? No suspicious lytic or blastic abnormality. SOFT TISSUES:? Unremarkable.? No discrete abdominal or pelvic wall hernia. LYMPH NODES:? No enlarged lymph nodes. OTHER FINDINGS:? All branches are patent. CT/CTA Abdomen W/WO Contrast IMPRESSION: ? Interval placement of an aortobiiliac endograft in good position.? There has been interval decrease in size of the thrombosed infrarenal abdominal aortic aneurysm.? There is no rupture or leakage. ? Electronically Signed: Bennett Crawford MD at 2:57 EDT , ROS General General: Yes fatigue; No weight change, appetite, colon cancer, breast cancer or weakness HEENT HEENT: No difficulty swallowing, eye injury, eye surgery, swollen glands or hoarseness Endo Endocrine: No thyroid disease, diabetes mellitus, thyroid cancer, Hair loss, heat intolerance or cold intolerance Skin Skin: Yes rash; No changing moles Musc Musculoskeletal: Yes arthritis; No back problems, rheumatoid arthritis, gout or joint pain Cardio Cardiovascular: No murmur, pacemaker, heart disease, atrial fibrillation, high blood pressure, heart attack, heart stent, palpitations, shortness of breat with exertion or chest pain Psych Psychiatric: No depression, anxiety or hearing voices Resp Respiratory: No shortness of breath, No sleep apnea, No cough, Yes COPD, No asthma, Yes emphysema and No wheezing Gastro Gastrointestinal: Yes abdominal pain, No nausea or vomiting, No diarrhea, Yes constipation, Yes blood in stool, No acid reflux, No hemorrhoids, No ulcers, No gallbladder problem and No black,tarry stools Bin Hematologic: No blood thinners, No blood disorders, No bleeding, No anemia and No blood clots Neuro Neurologic: No weakness Exam Const General: cooperative and no acute distress Nutritional Appearance: overweight [facility] Head: normal to inspection Eyes General: appearance normal, both eyes and all related structures Neck Neck: normal visual inspection Chest Other: Increased anterior posterior diameter Resp Effort & Inspection: normal respiratory effort Auscultation: clear to auscultation bilaterally Cardio Rate: regular rate Rhythm: regular rhythm Other: Bilateral radials 3+.? Bilateral brachials 3+.? Bilateral carotids 3+.? 2/6 right carotid bruit. Bilateral femorals 3+.? Bilateral popliteals 3+.? Bilateral DPs 1+.? Bilateral PTs 3+. GI Other: Soft, overweight, nontender, cannot palpate the abdominal aorta, normal bowel sounds Other: TendernessTesticles are descended, slightly tender on the right, atrophic on the left, noted the right groin but no focal mass or defect, no defect noted on the left Musc Cervical Spine: normal cervical lordosis Skin General: no rashes or lesions noted Neuro General: patient alert and patient awake Extrem General: normal to inspection Psych Appearance: grossly normal Assessment and Plan Assessment and Plan (1) Tobacco dependence: ?Status:?Acute (2) History of endovascular stent graft for abdominal aortic aneurysm: ?Status:?Acute (3) Right carotid bruit: ?Status:?Acute (4) Right groin pain: ?Status:?Acute (5) Screening for intestinal cancer: ?Status:?Acute (6) Constipation: ?Status:?Acute ? ? ? Orders: Orders Carotid Duplex Ultrasound Today R09.89 - Other specified symptoms and signs involving the circulatory and respiratory systems ? Abd Aortic/IVC Duplex scan 08/11/22 I71.4 - Abdominal aortic aneury sm, without rupture ? Plan Today's presentation ended up being complexity of issues. There is seems to be slight amount of confusion and that his aortic duplex exam that he had at an outside institution shows acid residual aortic aneurysm sac which would be completely anticipated after endovascular repair.? As noted by his current CTA he has sac is actually diminished in size quite significantly and the stent graft is in good position and there is no endoleak.? I reassured him that that repair is solid and intact.? I recommend aortic duplex imaging at 1 year. Patient has ongoing chronic tobacco addiction.? I strongly recommend cessation but he admits that that is likely not to happen as he cannot find the willpower to stop. On clinical examination I detected a right carotid bruit.? I recommend to him carotid duplex imaging. Patient with chronic right groin pain antecedent to a remote right inguinal hernia surgery and with ongoing complaints.? On clinical examination I am not able to detect a recurrent right inguinal hernia.? Suspect that this sounds neuropathic.? Certainly the patient can seek primary care follow-up or if need be referral to a pain specialist. Patient's not had a screening colonoscopy he states for over 10 years.? He notes chronic constipation apparently escalating in nature.? I did suggest to him a colonoscopy with possible biopsy or polypectomy as indicated.? He states that he would like me to pursue that for him.? We will schedule procedure at his discretion. He has had an opportunity ask and have questions answered.? I very much appreciate the kind opportunity of assisting with the surgical care.? The patient admits that he was notified of previous appointment recommendations and states that he was too scared or stubborn to pursue at that time. Copy: Dr. Dl Enciso and Dr. Duke Hampton M.D., F.A.C.S. I have re-examined the patient. There are no clinical changes since date of exam. Ernst Hampton M.D., F.A.C.S.
[2021-09-21 06:27] VITALS: PULSE 71; RESP 16; TEMP 36.4; O2SAT 98; BMI 29.8
[2021-09-21] MEDS: Lactated Ringers 1,000 ML 15 ML IV (06:35)
--- NOTE | 2021-09-21 07:00 | COLBX_PTH ---
PATIENT: KAY TRAMMELL LOC: EN U#:[id number] AGE/SX: 56/M ROOM: RE09/21/[address]: Dr. Ernst Hampton MD : 1965 BED: DIS: 09/21/2021 SPEC #: [id number] RECD: 09/21/21 11:04 STATUS: KELLIE DEREK #: [id number] COY: 09/21/21 07:[address]: Ernst Hampton DEPT: SURGICAL PATHOLOGY RECD BY: Julissa Hernandes ENTERED: 09/21/21 11:39 SP TYPE: COLON BX ISA DR: Dr. Duke Barrientos, Tissues: A - Sigmoid colon biopsy B - Sigmoid colon biopsy C - Rectum, NOS Procedures: Surgery Specimen Level IV HEADER OPERATION: Colonoscopy ([facility]), biopsy PRE-OP DIAGNOSIS: Screening, constipation TISSUE SUBMITTED: A ? Mid sigmoid polyp biopsy, B ? Distal sigmoid polyp biopsy, C ? Rectal polyp biopsy MICROSCOPIC DIAGNOSIS A. Mid sigmoid polyp, biopsy: Fragments of colonic mucosa, no pathologic diagnosis. B. Distal sigmoid polyp, biopsy: A fragment of colonic mucosa, no pathologic diagnosis. C. Rectal polyp, biopsy: Consistent with inflammatory polyp. JOANN:geovanni 09/22/2021 MICROSCOPIC DESCRIPTION Slides are reviewed. GROSS DESCRIPTION A - Received in fixative is one container labeled with the patient's name and designated mid sigmoid polyp biopsy. The specimen consists of two irregular fragments of light rea soft tissue that in aggregate measure 0.8 x 0.2 x 0.1 cm. The specimen is totally submitted in one cassette. B - Received in fixative is one container labeled with the patient's name and designated distal sigmoid polyp biopsy. The specimen consists of one irregular fragment of light rea soft tissue that measures 0.3 x 0.2 x 0.1 cm. The specimen is totally submitted in one cassette. C - Received in fixative is one container labeled with the patient's name and designated rectal polyp biopsy. The specimen consists of two irregular fragments of light rea soft tissue that in aggregate measure 0.6 x 0.2 x 0.1 cm. The specimen is totally submitted in one cassette. / JOANN:geovanni 09/21/2021 TC:5 CPT: 52974 x3
[2021-09-21 07:25] VITALS: BP 109/76; BP 113/78; PULSE 65; RESP 16; TEMP 36.7; O2SAT 100
--- NOTE | 2021-09-21 07:25 | OP.CCLET_ITS ---
09/21/2021 Duke Barrientos Re : Colonoscopy procedure for Raymond Guidry Dear Floyd This procedure was performed on Tuesday, September 21, 2021. My impressions and recommendations are as follows: Impressions : - Non-thrombosed external hemorrhoids, non-thrombosed internal hemorrhoids and internal hemorrhoids that prolapse with straining, but spontaneously regress to the resting position (Grade II) found on digital rectal exam. - One 4 mm polyp in the mid sigmoid colon, removed with a cold biopsy forceps. Resected and retrieved. - One 4 mm polyp in the distal sigmoid colon, removed with a cold biopsy forceps. Resected and retrieved. - One 5 mm polyp in the rectum, removed with a cold biopsy forceps. Resected and retrieved. - Diverticulosis in the sigmoid colon. - Tortuous colon. Recommendations : - Discharge patient to home. - Resume previous diet. - Continue present medications. - Repeat colonoscopy in 5 years for surveillance based on pathology results. - Telephone my office for pathology results in 1 week. My findings are described in the full procedure note, which is enclosed. If I can be of further assistance, please feel free to contact me at Doctor phone number(s): Work: . Sincerely, Ernst Hampton MD 09/21/2021 7:25:14 AM This report has been signed electronically.
--- NOTE | 2021-09-21 07:25 | OP.COLON_ITS ---
Patient Name: Raymond Guidry Procedure Date: 09/21/2021 6:49 AM Date of : 1965 Age: 56 Procedure: Colonoscopy Indications: Screening for colorectal malignant neoplasm Providers: Ernst Hampton MD Referring MD: Duke Barrientos Medicines: See the Anesthesia note for documentation of the administered medications Patient Profile: Last Colonoscopy: none. The patient's first colonoscopy is today. Complications: No immediate complications. Procedure: Pre-Anesthesia Assessment: - Prior to the procedure, a History and Physical was performed, and patient medications and allergies were reviewed. The patient's tolerance of previous anesthesia was also reviewed. The risks and benefits of the procedure and the sedation options and risks were discussed with the patient. All questions were answered, and informed consent was obtained. Prior Anticoagulants: The patient has taken no previous anticoagulant or antiplatelet agents. ASA Grade Assessment: II - A patient with mild systemic disease. After reviewing the risks and benefits, the patient was deemed in satisfactory condition to undergo the procedure. After I obtained informed consent, the scope was passed under direct vision. Throughout the procedure, the patient's blood pressure, pulse, and oxygen saturations were monitored continuously. The Colonoscope was introduced through the anus and advanced to the cecum, identified by appendiceal orifice and ileocecal valve. The colonoscopy was somewhat difficult due to a tortuous colon. The patient tolerated the procedure well. The quality of the bowel preparation was good. The ileocecal valve and the appendiceal orifice were photographed. Scope In: 6:59:03 AM Scope Withdrawal Time 0 hours 14 minutes 30 seconds Scope Out: 7:19:45 AM Total Procedure Duration Time 0 hours 20 minutes 42 seconds Findings: The digital rectal exam findings include non-thrombosed external hemorrhoids, non-thrombosed internal hemorrhoids and internal hemorrhoids that prolapse with straining, but spontaneously regress to the resting position (Grade II). Pertinent negatives include normal prostate (size, shape, and consistency). A 4 mm polyp was found in the mid sigmoid colon. The polyp was sessile. The polyp was removed with a cold biopsy forceps. Resection and retrieval were complete. A 4 mm polyp was found in the distal sigmoid colon. The polyp was sessile. The polyp was removed with a cold biopsy forceps. Resection and retrieval were complete. A 5 mm polyp was found in the rectum. The polyp was sessile. The polyp was removed with a cold biopsy forceps. Resection and retrieval were complete. Multiple diverticula were found in the sigmoid colon. The colon (entire examined portion) was moderately tortuous. Impression: - Non-thrombosed external hemorrhoids, non-thrombosed internal hemorrhoids and internal hemorrhoids that prolapse with straining, but spontaneously regress to the resting position (Grade II) found on digital rectal exam. - One 4 mm polyp in the mid sigmoid colon, removed with a cold biopsy forceps. Resected and retrieved. - One 4 mm polyp in the distal sigmoid colon, removed with a cold biopsy forceps. Resected and retrieved. - One 5 mm polyp in the rectum, removed with a cold biopsy forceps. Resected and retrieved. - Diverticulosis in the sigmoid colon. - Tortuous colon. Recommendation: - Discharge patient to home. - Resume previous diet. - Continue present medications. - Repeat colonoscopy in 5 years for surveillance based on pathology results. - Telephone my office for pathology results in 1 week. Procedure Code(s): --- Professional --- 54091, Colonoscopy, flexible; with biopsy, single or multiple Diagnosis Code(s): --- Professional --- Z12.11, Encounter for screening for malignant neoplasm of colon K64.1, Second degree hemorrhoids K64.4, Residual hemorrhoidal skin tags D12.5, Benign neoplasm of sigmoid colon K62.1, Rectal polyp K57.30, Diverticulosis of large intestine without perforation or abscess without bleeding Q43.8, Other specified congenital malformations of intestine CPT copyright 2017 [employer]. All rights reserved. The codes documented in this report are preliminary and upon entertainment dancer review may be revised to meet current compliance requirements. Ernst Hampton MD 09/21/2021 7:25:14 AM This report has been signed electronically. Number of Addenda: 0 Note Initiated On: 09/21/2021 6:49 AM
[2021-09-21 07:30] VITALS: BP 109/76; BP 120/77; PULSE 66; RESP 16; O2SAT 100
[2021-09-21 07:35] VITALS: BP 109/76; BP 129/72; PULSE 65; RESP 16; O2SAT 100
[2021-09-21 07:40] VITALS: BP 109/76; BP 125/75; PULSE 63; RESP 16; TEMP 36.2; O2SAT 98
[2021-09-21 08:05] VITALS: BP 109/76
== END 2021-09-21 08:10 | disposition home or self-care (01) ==
LOC: EN 05:52 → AC 05:53
PROVIDERS: PCP Family Medicine; Referring Provider Family Medicine; Visit Provider Surgery
PROC: 0DJD8ZZ Inspection of Lower Intestinal Tract, Via Natural or Artificial Opening Endoscopic (ICD-10-PCS; CPT 45378; principal; 2021-09-21 06:55)
DX: Z12.11 Encounter for screening for malignant neoplasm of colon (principal); J44.9 Chronic obstructive pulmonary disease, unspecified; I71.4 Abdominal aortic aneurysm, without rupture; K62.1 Rectal polyp; K63.5 Polyp of colon; Z79.82 Long term (current) use of aspirin; F17.200 Nicotine dependence, unspecified, uncomplicated; K64.1 Second degree hemorrhoids; K64.4 Residual hemorrhoidal skin tags; K57.30 Diverticulosis of large intestine without perforation or abscess without bleeding; Q43.8 Other specified congenital malformations of intestine
CPT/HCPCS: 45380; 88305; J7120; J2405

== ENCOUNTER → 2021-10-11 | Outpatient (CLI) | payer MEDICAID, SELFPAY ==
--- NOTE | 2021-10-11 08:05 | CDU_ITS ---
Reason For Study: bruit Rt. Velocities/BP Lt. Velocities/BP Prox CCA 69.5/12.1 cm/sec. Prox CCA 82.6/23.9 cm/sec. Mid CCA 64.3/17.3 cm/sec. Mid CCA 69.5/16.0 cm/sec. Dist CCA 57.8/14.7 cm/sec. Dist CCA 72.1/23.9 cm/sec. Prox ICA 36.9/13.4 cm/sec. Prox ICA 44.7/14.7 cm/sec. Mid ICA 53.9/22.6 cm/sec. Mid ICA 49.1/19.8 cm/sec. Dist ICA 56.2/21.2 cm/sec. Dist ICA 70.8/26.5 cm/sec. Rt. ICA/CCA = .9. Lt. ICA/CCA = 1.0. Prox ECA 72.1/13.4 cm/sec. Prox ECA 64.3/14.7 cm/sec. Rt. Vert. 40.8/12.1 cm/sec. Lt. Vert. 44.7/16.0 cm/sec. Right Extracranial There is homogeneous, smooth atherosclerotic plaque noted in the right common carotid artery. There is intimal thickening but no significant atherosclerotic plaque noted in the right internal carotid artery. There is intimal thickening but no significant atherosclerotic plaque noted in the right external carotid artery. Antegrade flow is noted in the right vertebral artery. Left Extracranial There is intimal thickening but no significant atherosclerotic plaque noted in the left common carotid artery. There is intimal thickening but no significant atherosclerotic plaque noted in the left internal carotid artery. There is intimal thickening but no significant atherosclerotic plaque noted in the left external carotid artery. Antegrade flow is noted in the left vertebral artery. Procedure Carotid Duplex 23090. This is a Carotid Duplex examination using B-mode, color flow and specral Doppler. The exam was diagnostic. Exam performed in department. VL/Carotid Duplex Ultrasound Interpretation Summary Intimal thickening of the right proximal internal carotid artery with less than 50% stenosis Less than 50% stenosis right external carotid artery Intimal thickening of the proximal left internal carotid artery with less than 50% stenosis Less than 50% stenosis left external carotid artery Patent and antegrade vertebral arteries bilaterally Ordering Physician: Ernst Hampton Performed By: Henry Cabrera RVT
== END | disposition home or self-care (01) ==
LOC: CVS 08:04
PROVIDERS: PCP Family Medicine; Visit Provider Surgery
DX: R09.89 Other specified symptoms and signs involving the circulatory and respiratory systems (principal)
CPT/HCPCS: 93880

== ENCOUNTER → 2022-01-17 | Outpatient (CLI) | payer MEDICAID, SELFPAY ==
--- NOTE | 2022-01-17 14:45 | RAD_ITS ---
INDICATION: SOB, Palpitations EXAMINATION/TECHNIQUE: X-RAY - XR Chest 2 Views COMPARISON: 2 view chest x-ray from 01/10/2018 FINDINGS: LINES/DEVICES: Partially imaged metallic stent within midline abdomen.. LUNGS: Hyperexpanded lungs again noted. No pulmonary edema or focal airspace consolidation. No sizable pleural effusion. No pneumothorax detected. MEDIASTINUM AND CARDIOVASCULAR STRUCTURES: Heart size within normal limits. Mediastinal contours unremarkable. BONES AND SOFT TISSUES: Skeletal degenerative changes. 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 RAD/Chest PA and Lateral IMPRESSION: COPD Electronically Signed: Nghia Leigh MD at 2:10 EST ,
[2022-01-17 16:07] LABS: Hematocrit 46.1 % (40-54); Hemoglobin 15.5 g/dL (13.0-16.5); Mean Corp Hgb Conc 33.6 g/dL (32-36); Mean Corpuscular Hgb 30.8 pg (27.0-32.0); Mean Corpuscular Volume 91.7 fL (80-94); Mean Platelet Vol. 10.6 fl (6.2-12.0); Platelet Count 173 K/mm3 (150-450); RBC Distribution Width CV 13.3 % (11.6-14.6); RBC Distribution Width SD 44.9 fl (35.1-43.9); Red Blood Count 5.03 M/mm3 (4.6-6.2); White Blood Count 9.9 K/mm3 (4.4-11.0)
[2022-01-17 16:16] LABS: International Normalized Ratio 1.1; Prothrombin Time (Protime)PT. 13.5 SECONDS (11.7-14.9)
[2022-01-17 16:17] LABS: Partial Thromboplast Time 27.4 Seconds (24.1-36.2)
[2022-01-17 16:51] LABS: Anion Gap 6 (5-15); BUN 12 mg/dL (7-18); BUN/Creat Ratio 11.8 RATIO (10-20); Calcium,Total 8.9 mg/dL (8.5-10.1); Chloride 106 mmol/L (98-107); Creatinine, Serum 1.02 mg/dL (0.70-1.30); EST Glomerular Filtration Rate 80 mL/min (>60); Est Glom Filt Rate - Afr Amer 97 mL/min (>60); Glucose 72 mg/dL (74-106); Potassium 4.3 mmol/L (3.5-5.1); Sodium Level 140 mmol/L (136-145)
== END | disposition home or self-care (01) ==
LOC: RAD 14:43
PROVIDERS: PCP Family Medicine; Referring Provider Internal Medicine Cardiovascular Disease; Visit Provider Internal Medicine Cardiovascular Disease
DX: R06.09 Other forms of dyspnea (principal)
CPT/HCPCS: 36415; 71046; 80048; 85027; 85610; 85730

== ENCOUNTER → 2022-01-24 | Outpatient (CLI) | payer MEDICAID, SELFPAY ==
--- NOTE | 2022-01-24 13:50 | ECHOD_ITS ---
Reason For Study: DYSPNEA Procedure This was a 2D Doppler, Color Flow transthoracic echocardiogram. Exam performed in department. Left Ventricle Normal left ventricle. The left ventricular ejection fraction is 65 %. Normal diastololic function. Right Ventricle Normal right ventricle. Atria The left and right atria are normal. Mitral Valve Trivial mitral valve insufficiency. Tricuspid Valve Trivial tricuspid valve insufficiency. Unable to estimate RV systolic pressure due to insufficient tricuspid regurgitant envelope. Aortic Valve Trisinus/trileaflet aortic valve. Mild (1+) aortic valve insufficiency. Pulmonic Valve The pulmonic valve is not well visualized. Great Vessels Mild to moderately dilated aortic root. Pericardium/Pleural No pericardial effusion. MMode/2D Measurements & Calculations LVIDd: 4.9 cm IVSd: 0.68 cm Ao root diam: 4.0 cm LVIDs: 3.1 cm LVPWd: 0.80 cm RVDd: 4.1 cm FS: 35.7 % LAV(MOD-bp): 50.1 ml LVAd ap4: 26.0 cm2 LVAd ap2: 29.3 cm2 LAV(MOD-bp) Indexed: 23.9 ml/m2 LVLd ap4: 8.0 cm LVLd ap2: 7.5 cm LAV(MOD-sp2): 53.7 ml EDV(MOD-sp4): 73.5 ml EDV(MOD-sp2): 96.0 ml LAV(MOD-sp4): 46.9 ml EDV(sp4-el): 71.5 ml EDV(sp2-el): 97.2 ml LVAs ap4: 14.8 cm2 LVAs ap2: 15.5 cm2 LVLs ap4: 6.3 cm LVLs ap2: 6.3 cm ESV(MOD-sp4): 30.8 ml ESV(MOD-sp2): 33.5 ml ESV(sp4-el): 29.6 ml ESV(sp2-el): 32.5 ml EF(MOD-sp4): 58.2 % EF(MOD-sp2): 65.1 % EF(sp4-el): 58.5 % SV(MOD-sp4): 42.8 ml SV(MOD-sp2): 62.5 ml SV(sp4-el): 41.8 ml LA dimension(2D): 3.5 cm LA A4 area: 17.9 cm2 RA A4 area: 16.6 cm2 Time Measurements MV dec time: 0.21 sec Doppler Measurements & Calculations MV E max jerry: 79.4 cm/sec Lat Peak E' Jerry: 8.9 cm/sec Med Peak E' Jerry: 9.7 cm/sec MV A max jerry: 78.4 cm/sec E/E' lat: 8.9 E/E' med: 8.2 MV E/A: 1.0 MV V2 max: 94.1 cm/sec MV dec slope: 371.8 cm/sec2 Ao V2 max: 137.3 cm/sec MV max P.6 mmHg Ao max P.6 mmHg MV V2 mean: 59.1 cm/sec Ao V2 mean: 92.6 cm/sec MV mean P.5 mmHg Ao mean P.0 mmHg MV V2 VTI: 31.3 cm Ao V2 VTI: 31.7 cm AI max jerry: 460.3 cm/sec LV V1 max: 131.2 cm/sec PA V2 max: 105.5 cm/sec AI max P.8 mmHg LV V1 max P.9 mmHg PA V2 mean: 66.5 cm/sec AI dec slope: 226.2 cm/sec2 LV V1 mean P.9 mmHg AI P1/2t: 596.1 msec LV V1 mean: 93.7 cm/sec LV V1 VTI: 28.2 cm ECHO/Echo Complete Interpretation Summary The left ventricular ejection fraction is 65 %. Mild (1+) aortic valve insufficiency. Mild to moderately dilated aortic root. Ordering Physician: Madalyn Broderick Performed By: Carlota Arnold RCS
== END | disposition home or self-care (01) ==
LOC: CVS 13:49
PROVIDERS: PCP Family Medicine; Visit Provider Internal Medicine Cardiovascular Disease
DX: R06.02 Shortness of breath (principal)
CPT/HCPCS: 93306

== ENCOUNTER 2022-01-27 09:28 | Day surgery (SDC) | payer MEDICAID, SELFPAY ==
[2022-01-26 07:14] VITALS: BMI 30.5
--- NOTE | 2022-01-31 11:33 | CL.D_ITS ---
Patient Name: KAY TRAMMELL Study Date: 01/27/2022 Performing: Madalyn Broderick MD Ht: 69 inches 175.26 cm : 1965 Wt: 207.3 lbs 93.89 kg Age: 56 Gender: male BSA: 2.1 PROCEDURE(S) PERFORMED [id number])[facility] CLINICAL PROFILE AND INDICATIONS Indications: Suspected CAD Heart Failure: None Angina Classification Anginal Classification w/in 2 Weeks: Anginal Equivalent Dyspnea CONCLUSIONS Non-obstructive CAD RECOMMENDATIONS Risk factor modification DESCRIPTION OF PROCEDURE The patient arrived to the procedure lab. The risks and benefits of the procedure as well as a full description of our services here and current unavailability of surgical backup were fully explained to the patient and/or their significant other prior to the catheterization. The Timeout was completed, verifying the correct patient and procedure. The patient's procedural site was prepped and draped in the usual fashion. Local anesthetic was given subcutaneously to right radial region with Lidocaine 2%. Using a modified Seldinger technique, arterial access was obtained via the right radial artery, a 6Fr sheath was inserted. Right Coronary Artery selective angiography was then performed in multiple views using a 5 Fr. 4.0 [place] catheter. Left Coronary Artery selective angiography was performed in multiple views using a 5 Fr. 4.0 [place] catheter.The arterial sheath was pulled and a TR Band was applied for hemostasis CORONARY ANGIOGRAPHY DOMINANCE: Right Dominant LEFT ANTERIOR DESCENDING ARTERY: LAD: Luminal Irregularities 20% Proximal lesion in LAD CIRCUMFLEX ARTERY: CIRCUMFLEX: Tubular 20% Proximal lesion in Circumflex RIGHT CORONARY ARTERY: RCA: Tubular 50% Proximal lesion in RCA COMPLICATIONS No Complications PROCEDURE MEDICATIONS Versed 2 mg IV Fentanyl 50 mcg IV Oxygen: 2 L/min via nasal cannula Heparin given IA 01/27/2022 11:38:01 Verapamil 2.5mg, Ntg 200mcgs, 2000 units of Heparin given IA 01/27/2022 11:38:01 SUMMARY OF HEMODYNAMIC DATA Time AIR REST ECG 09:46:55 AO 97/61 (76) SA 11:39:00 AIR REST 12:59:51 Signed By Madalyn Broderick MD On 01/31/2022 11:33:09 Madalyn Broderick MD
== END 2022-01-27 13:30 | disposition home or self-care (01) ==
PROVIDERS: PCP Family Medicine; Visit Provider Internal Medicine Cardiovascular Disease
DX: I25.118 Atherosclerotic heart disease of native coronary artery with other forms of angina pectoris (principal); E78.00 Pure hypercholesterolemia, unspecified; F17.210 Nicotine dependence, cigarettes, uncomplicated; Z79.899 Other long term (current) drug therapy; Z79.82 Long term (current) use of aspirin
CPT/HCPCS: 93454; 99152; J7040; C1769; C1894; Q9967